=== PATIENT | female | born 1935 | race African-American/Black ===

== ENCOUNTER 2016-12-06 18:18 | Emergency (ER) | payer MEDICARE, OTHER ==
[~2016-12-06] VITALS: Ht 157.5 cm; Wt 68.0 kg
[~2016-12-06 18:18] MED LIST: ASPI81TA2 PO; ATOR40TA PO; DORZ10DR8 EACHEYE; LABE300T PO; LISI1TAB11 PO; MULT-24 PO; PRAZ1CAP17 PO; PRED5DRO7 LEFTEYE
--- NOTE | 2016-12-06 18:55 | NUR ---
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 PLACED ON MONITOR. GOWSALLY PTJeancarlos FRY MD ORDER
--- NOTE | 2016-12-06 18:56 | NUR ---
DR BARNETT AT BEDSIDE FOR EVAL
--- NOTE | 2016-12-06 19:01 | NUR ---
EKG IN PROGRESS
--- NOTE | 2016-12-06 19:03 | NUR ---
JEISON #[id number] IV ACCESS. BLOOD SAMPLE COLLECTED SENT TO LAB
[2016-12-06 19:13] LABS: BASOPHILS # (AUTO) 0.1 /CMM (0.0-0.2); BASOPHILS % (AUTO) 1.3 % (0.0-2.0); EOSINOPHILS # (AUTO) 0.2 /CMM (0.0-0.7); HEMATOCRIT 34 % (33-45); HEMOGLOBIN 11.8 g/dL (11.5-14.8); LYMPHOCYTES # (AUTO) 1.8 /CMM (0.8-4.8); LYMPHOCYTES % (AUTO) 33.4 % (20.0-44.0); MEAN CORPUSCULAR HEMOGLOBIN 31 PG (26.0-33.0); MEAN CORPUSCULAR HGB CONC 35 g/dl (31.0-36.0); MEAN CORPUSCULAR VOLUME 88 fL (82-100); MONOCYTES # (AUTO) 0.5 /CMM (0.1-1.30); MONOCYTES % (AUTO) 9.4 % (2.0-12.0); NEUTROPHILS # (AUTO) 2.8 /CMM (1.8-8.9); NEUTROPHILS % (AUTO) 52.9 % (43.0-81.0); PLATELET COUNT (AUTO) 203 /CMM (150-450); RDW COEFFICIENT OF VARIATION 13.3 (11.5-15.0); RED BLOOD CELL COUNT(AUTO) 3.87 MIL/uL (4.0-5.2); WHITE BLOOD COUNT (AUTO) 5.4 K/uL (4.3-11.0)
--- NOTE | 2016-12-06 19:21 | NUR ---
REPORT GIVEN TO THI FOR JUAN DIEGO
[2016-12-06 19:23] LABS: CALCIUM, SERUM 8.9 mg/dL (8.5-10.1); CARBON DIOXIDE 28 mmol/L (21-32); CHLORIDE 106 mmol/L (98-107); CREATININE 1.3 mg/dL (0.6-1.3); GLUCOSE 110 mg/dL (74-106); POTASSIUM 4.2 mmol/L (3.5-5.1); SODIUM SERUM 139 mmol/L (136-145); UREA NITROGEN, BLOOD 19 mg/dL (7-18)
[2016-12-06 19:26] LABS: INR 0.97 (0.87-1.13); PROTHROMBIN TIME 10.1 SECS (9.5-12.7)
[2016-12-06 19:31] LABS: TROPONIN I < 0.017 ng/mL (0.00-0.056)
--- NOTE | 2016-12-06 20:10 | NUR ---
PT RESTING IN ER BED, NAD NOTED, SKIN WARM AND DRY, RR EVEN AND UNLABORED. WILL CONITINUE TO MONITOR
--- NOTE | 2016-12-06 20:37 | NUR ---
CALLED , TRANSFERRED CALL TO
[2016-12-06 20:53] LABS: APPEARANCE,URINE Clear (CLEAR); BILIRUBIN,URINE Negative (NEGATIVE); BLOOD, URINE Moderate Ery/uL (NEGATIVE); COLOR,URINE Yellow (YELLOW); KETONES,URINE Negative (NEGATIVE); LEUKOCYTE ESTERASE ,URINE Negative (NEGATIVE); NITRITE, URINE Negative (NEGATIVE); PROTEIN,URINE Negative (NEGATIVE); UGLUCOSE Negative (NEGATIVE); UROBILINOGEN,URINE 0.2 EU/dL (0.2)
[2016-12-06 21:05] VITALS: BP 133/72
--- NOTE | 2016-12-06 21:05 | NUR ---
Patient discharged to home in stable condition. Written and verbal after care instructions given. Patient verbalizes understanding of instruction.IV removed. Catheter intact and site benign. Pressure and 4x4 applied to site. No bleeding noted. PT ambulatory with a steady gait
[2016-12-06 21:26] LABS: WBC,URINE 0-2 /HPF (0-3)
[2016-12-06 21:27] LABS: BACTERIA,URINE Rare /HPF (None Seen); SQUAMOUS EPITHELIAL CELL,UR Few /HPF (None Seen)
== END 2016-12-06 21:34 | disposition home or self-care (01) ==
LOC: ER 18:19
DX: R47.01 Aphasia (principal); I10 Essential (primary) hypertension; G45.9 Transient cerebral ischemic attack, unspecified; E78.00 Pure hypercholesterolemia, unspecified
CPT/HCPCS: 36415; 70450; 71010; 80048; 81001; 82962; 84484; 85025; 85730; 93005 ×2; 99285; A4606; 81000-TC; Z7610

== ENCOUNTER 2018-12-15 15:01 | Emergency (ER) | payer MEDICARE, OTHER ==
[~2018-12-15] VITALS: Ht 157.5 cm; Wt 79.4 kg
[~2018-12-15 15:01] MED LIST changes: +ASPI-1169 PO; -ASPI81TA2 PO; +DORZ10DR10 EACHEYE; -DORZ10DR8 EACHEYE; -LABE300T PO; +LABE300T2 PO; +PRED5DRO16 LEFTEYE; -PRED5DRO7 LEFTEYE
[2018-12-15 15:16] VITALS: BP 169/83
--- NOTE | 2018-12-15 15:33 | NUR ---
PATIENT SEEN AND EVALUATED BY DR. BOLIVAR. NO S/SX OF STROKE AT THIS TIME.
== END 2018-12-15 16:15 | disposition home or self-care (01) ==
LOC: ER 15:02
DX: F10.129 Alcohol abuse with intoxication, unspecified (principal); R40.4 Transient alteration of awareness; I10 Essential (primary) hypertension; E78.00 Pure hypercholesterolemia, unspecified; E78.5 Hyperlipidemia, unspecified; Y90.9 Presence of alcohol in blood, level not specified; Z86.73 Personal history of transient ischemic attack (TIA), and cerebral infarction without residual deficits; Z98.890 Other specified postprocedural states; Z79.82 Long term (current) use of aspirin
CPT/HCPCS: Z7502